=== PATIENT | female | born 1950 | race Caucasian/White ===

== ENCOUNTER 2017-11-25 07:18 | Inpatient (IN) | payer OTHER ==
[2017-11-16 13:38] VITALS: BMI 21.5
--- NOTE | 2017-11-17 11:14 | HP ---
DATE OF ADMISSION: 11/25/2017 DATE OF DICTATION: 11/05/2017 BRIEF HISTORY: This is a 67-year-old female who noted a lump in her midabdomen. She has had this for quite some time but over the past several months, it is causing her more discomfort and she feels it has gotten larger. She states what aggravated it most likely was her severe coughing spell a year ago. In any event, she has had no nausea, no vomiting, no change in bowel habits. She has undergone a workup by GI as well as her primary care for nonspecific abdominal pain. This workup included a CAT scan that demonstrated no suspicious findings in the abdominal region. She had a nonspecific fluid collection in the chest that was evaluated by her primary care physician and was told not an issue. This will not be addressed by me at this time. She has also undergone a colonoscopy that was unremarkable, according to the patient. The results are not available to me. After this extensive workup, it is felt that a hernia might be causing the nonspecific abdominal discomfort and bloating sensation that she has at times. PAST MEDICAL HISTORY: No coronary disease, hypertension, or diabetes. PAST SURGICAL HISTORY: Laminectomy, hysterectomy, section, diagnostic laparoscopy via the umbilicus, and a chromoplasty, and tonsillectomy. Patient has a history of endometriosis, underwent a limited diagnostic laparoscopy, had 5 incisions followed by a total abdominal hysterectomy. This was done via a Pfannenstiel. Allergies to PENICILLIN, FLOXINS, LEVAQUIN. MEDICATIONS: Wellbutrin and Lamictal. SOCIAL HISTORY: Patient does not smoke nor drink. PHYSICAL EXAMINATION: Abdomen: Soft, nontender, nondistended. She has well-healed diagnostic laparoscopy scars. She has a clear hernia from an incisional hernia in the midabdomen. The hernia is chronically incarcerated, mildly tender on examination. The skin overlying the hernia is thinned. The true defects of the hernia are not appreciated, though it is chronically incarcerated in nature. IMPRESSION/PLAN: Chronically incarcerated incisional ventral hernia. At this point, we have discussed the various surgical approaches for repairing this and I think her best approach is via open. At the time of surgery, I suspect she will have a fair amount of frayed tissue and therefore require a larger piece of mesh for a solid repair. If this is the case, she may require a component separation to accomplish this. This will be determined at the time of surgery. The indications, alternatives and complications of the procedure were discussed, questions answered. Will plan to obtain written consent the day of surgery. LINDA VALDEZ M.D. [id number]
[2017-11-25] MEDS ORDERED: BUPIVACAINE LIPOSOME/PF (EXPAREL) 266 MG/20 ML VIAL ONE (09:02)
[2017-11-25] MEDS ORDERED: MIDAZOLAM HCL 2 MG/2 ML SINGLE DOSE VIAL ONE (09:02)
[2017-11-25] MEDS ORDERED: BUPIVACAINE HCL/PF 2.5 MG/ML - 30 ML VIAL IJ ONE (09:02)
[2017-11-25] MEDS ORDERED: clonazePAM 0.5 MG TABLET PO PRN (09:59)
[2017-11-25] MEDS ORDERED: BUPROPION HCL 200 MG PO SCH (10:00)
[2017-11-25] MEDS ORDERED: PATIENT'S OWN MEDICATION (NON-FORMULARY) (Cyclosporine [Restasis] 1 EACH) OU SCH (10:00)
[2017-11-25] MEDS ORDERED: oxyCODONE HCL 5 MG TABLET PO PRN ×2 (10:01→11:49)
[2017-11-25] MEDS ORDERED: ONDANSETRON 4 MG/2 ML VIAL IVPUSH PRN ×2 (10:01→11:49)
[2017-11-25] MEDS ORDERED: morphine SULFATE 4 MG/ML VIAL IVPB PRN (10:01)
[2017-11-25] MEDS ORDERED: PROPOFOL 20 ML ONE ×2 (10:11)
[2017-11-25] MEDS ORDERED: SUCCINYLCHOLINE CHLORIDE 200 MG/10 ML VIAL ONE (10:11)
[2017-11-25] MEDS ORDERED: ROCURONIUM BROMIDE 50 MG/5 ML VIAL ONE (10:11)
[2017-11-25] MEDS ORDERED: D5-1/2NS+20 MEQ KCL - 20 MEQ/1,000 ML INFUS.BAG IV SCH (10:15)
[2017-11-25] MEDS ORDERED: GLYCOPYRROLATE 0.2 MG/1 ML VIAL ONE (11:16)
[2017-11-25] MEDS ORDERED: NEOSTIGMINE METHYLSULFATE 0.5 MG/ML - 10 ML MDV ONE (11:16)
[2017-11-25] MEDS ORDERED: PROMETHAZINE HCL 25 MG/1 ML VIAL IVPUSH PRN (11:49)
--- NOTE | 2017-11-25 15:05 | OP ---
DATE OF OPERATION: 11/25/2017 PREOPERATIVE DIAGNOSIS: Complex chronically incarcerated ventral incisional hernia. POSTOPERATIVE DIAGNOSIS: Complex chronically incarcerated ventral incisional hernia. PROCEDURE: Open bilateral component separation repair of chronically incarcerated ventral incisional hernia with mesh. SURGEON: Anam Zarate MD [facility]LL OPERATOR: Everette Miller DO ANESTHESIA: Celestine Whitley MD (general). ESTIMATED BLOOD LOSS: Minimal. SPECIMEN: None. INDICATION FOR PROCEDURE: This is a 67-year-old female who noted a lump in her midabdomen. It has been there for the past several months but causing her discomfort. Patient has a clear incisional hernia from her previous surgery. It is causing her discomfort. She is here for operative repair. Patient identified and appropriately positioned on operating room table. After placement of general anesthesia, the abdomen was prepped and draped in the usual sterile fashion with ChloraPrep. A vertical incision overlying the hernia was made deep in the subcutaneous tissue. The hernia was dissected free from the subcutaneous tissue with the cautery. This was taken down to the fascial level. The fascia was significantly frayed at this level and therefore the decision was made to do a retrorectus repair with a component separation. The anterior sheath was subsequently divided, the muscles split, the posterior sheath identified and then freed along the right side first and then in the midline it was divided through the linea alba and on the left side it was freed in a similar fashion with blunt dissection. Next, the posterior space was then developed more on the right toward the perforating vessels just medial to the perforating vessels. The fascia was then scored and the transversus was from the obliques and rectus. This was taken approximately 4 inches above and below the actual defect. The midline was developed with blunt dissection, and once that was accomplished, a similar approach on the right side was done. Again, the rectus muscle was followed out laterally bluntly and then the perforating vessels identified. The fascia just medial to the perforating vessels was scored and the vessels and the myofascial separation of the transversus was done from the obliques and the rectus. Again, that was taken about 4 inches above and below the actual defect. A large 15 x 15 piece of ProGrip as well as a 6 x 10 Ovitex Mesh was used for the operative repair. The 2 pieces of mesh were sewn together with interrupted 3-0 Vicryl suture. The Ovitex was placed on the transversus side and the ProGrip with the manager information underneath the rectus. The mesh as placed, fanned out to cover the defect and then the mesh itself was anchored with the AbsorbaTack. All anchors placed under direct counter palpation. Next, the mesh itself was irrigated, the operative field examined and noted to be hemostatic. Counts were correct at this point. The abdomen then underwent a Valsalva to 40 to 50 mmHg x3. This seated the ProGrip as well as ensured that there was no recurrence. Next, the fascia overlying the mesh was reapproximated with interrupted 0 PDS suture. The subcutaneous space was irrigated and the skin closed with klaus. At the conclusion of this case, sponge counts were correct. ATTESTATION: Brief operative note handwritten on the preprinted form. [facility] queried prior to giving narcotics. Rosalina PARKER [id number] Job #: [id number] cc: Douglas Martines MD MTDD
[2017-11-25] MEDS: ACETAMINOPHEN 325 MG TABLET (FP) PO PRN (20:50)
[2017-11-25] MEDS ORDERED: lamoTRIgine 100 MG TABLET (FP) PO SCH (22:00)
[2017-11-26] MEDS: oxyCODONE HCL 5 MG TABLET PO PRN ×2 (00:44→10:34)
[2017-11-26] MEDS: ACETAMINOPHEN 325 MG TABLET (FP) PO PRN (02:24)
[2017-11-26 06:55] VITALS: BP 89/45; PULSE 67; TEMP 98.5
--- NOTE | 2017-11-26 08:40 | DS ---
DATE OF ADMISSION: 11/25/2017 DATE OF DISCHARGE: 11/26/2017 ADMITTING DIAGNOSIS: Complex incarcerated ventral hernia. DISCHARGE DIAGNOSIS: Complex incarcerated ventral hernia. BRIEF HISTORY: This is a 67-year-old female who was admitted to [facility] for surgical management of a complex ventral hernia. She underwent repair of this hernia with mesh utilizing component separation technique. Please reference Dr. Anam Zarate's operative note from November 25 for further details. She is being discharged home today, November 26. She is tolerating diet. She is ambulating and she is voiding. Her discomfort is well controlled with oral narcotics. While she was in the hospital she was also given her usual medications for depression and anxiety as well as for dry eyes. She will go home with her usual home medications and an additional prescription for Percocet which she will take as needed for pain. She is okay to shower. She will not lift anything more than 20 pounds. She will follow with Dr. Zarate in approximately 2 weeks' time for her postoperative check. She will likely require 2 weeks off from work. At the time of her discharge she is afebrile, tolerating diet, ambulating and voiding and wants to go home. DO ANABEL ARMANDO/[id number]
[2017-11-26] MEDS ORDERED: ENOXAPARIN NA (PORCINE) 40 MG/0.4 ML DISP.SYRIN SQ SCH (10:00)
[2017-11-26] MEDS ORDERED: PANTOPRAZOLE SODIUM 40 MG VIAL IVPUSH SCH (10:00)
--- NOTE | 2017-11-26 15:29 | PN ---
Progress Note (short form) - Note Progress Note: Anesthesiology Post-op 67 y.o. woman POD#1 s/p repair of complex ventral hernia with GA and bilateral TAP blocks. She is awake and feels well. She states that she was very comfortable overnight and only now is starting to have some discomfort. The pain meds manage this well. She is otherwise quite content. VSS. 67 y.o. woman with stable post-operative course. Continue current management.
== END 2017-11-26 13:45 | disposition home or self-care (01) | DRG 355 ==
LOC: FASU 07:18 → FM/S 10:01 → UNDOADMIN 12:55 → FM/S 12:55
PROVIDERS: ADMIT Surgery; ATTEND Surgery
PROC: 0WUF0JZ Supplement Abdominal Wall with Synthetic Substitute, Open Approach (ICD-10-PCS; principal; 2017-11-25 10:30)
DX: K43.0 Incisional hernia with obstruction, without gangrene (principal); F41.8 Other specified anxiety disorders
CPT/HCPCS: 94760

== ENCOUNTER 2020-03-18 15:00 | Emergency (ER) | payer OTHER ==
[2020-03-18] MEDS ORDERED: ACETAMINOPHEN 325 MG TABLET (FP) PO ONE (15:28)
[2020-03-18] MEDS ORDERED: LIDOCAINE 5% TOPICAL PATCH TP ONE (15:33)
[2020-03-18] MEDS ORDERED: LIDOCAINE 5% TOPICAL PATCH ONE (15:35)
[2020-03-18] MEDS ORDERED: ACETAMINOPHEN 325 MG TABLET (FP) ONE (15:35)
[2020-03-18 15:37] VITALS: BP 150/94; PULSE 84; BMI 22.8
[2020-03-18 15:48] VITALS: TEMP 99.3
[2020-03-18 15:56] LABS: PLATELET COUNT 330 K/MM3 (134-434)
[2020-03-18 16:01] LABS: HEMOGLOBIN 14.4 GM/dl (10.7-15.3); MCH 30.2 pg (25.7-33.7); MCHC 32.7 g/dl (32.0-36.0); MEAN CELL VOLUME 92.3 fl (80-96); MEAN PLT VOLUME 8.4 fl (7.5-11.1); RBC 4.77 M/mm3 (3.60-5.2); RDW 13.4 % (11.6-15.6); WHITE BLOOD COUNT 7.1 K/mm3 (4.0-10.8)
[2020-03-18 16:08] LABS: EPITHELIAL CELLS MODERATE /hpf
[2020-03-18 16:09] LABS: ALBUMIN 4.2 g/dl (3.4-5.0); BILIRUBIN,TOTAL 0.9 mg/dl (0.2-1); CALCIUM 9.3 mg/dl (8.5-10); CREATININE 0.8 mg/dl (0.55-1.3); POTASSIUM 4.2 mmol/L (3.5-5.1); TOT PROT 6.8 g/dl (6.4-8.2)
[2020-03-18] MEDS ORDERED: LIDOCAINE PATCH REMOVAL MC SCH (22:00)
== END 2020-03-18 16:35 | disposition home or self-care (01) ==
LOC: FER 15:00
DX: M54.5 Low back pain (principal)
CPT/HCPCS: 36415; 80053; 81003; 81015; 85027; 87086; 99283-25

== ENCOUNTER 2021-09-09 21:55 | Emergency (ER) | payer OTHER, MEDICARE ==
[2021-09-09 22:05] VITALS: BP 130/75; PULSE 67; TEMP 98.9; BMI 23.6
[2021-09-09] MEDS ORDERED: cefTRIAXone SODIUM 1 GM VIAL ONE (22:14)
[2021-09-09] MEDS ORDERED: CEFTRIAXONE 1,000 MG in DEXTROSE 5%-WATER - 50 ML IVPB ONE (22:37)
== END 2021-09-09 23:25 | disposition home or self-care (01) ==
LOC: FER 21:55
DX: S61.451A Open bite of right hand, initial encounter (principal); W55.01XA Bitten by cat, initial encounter
CPT/HCPCS: 99284-25

== ENCOUNTER 2021-09-10 21:08 | Emergency (ER) | payer OTHER, MEDICARE ==
[2021-09-10 21:13] VITALS: BP 130/73; PULSE 64; TEMP 98.3; BMI 23.6
== END 2021-09-10 22:46 | disposition home or self-care (01) ==
LOC: FER 21:08
DX: L03.113 Cellulitis of right upper limb (principal); Z48.00 Encounter for change or removal of nonsurgical wound dressing
CPT/HCPCS: 99281-25

== ENCOUNTER 2021-09-28 22:25 | Emergency (ER) | payer OTHER, MEDICARE ==
[2021-09-28 22:48] VITALS: BP 155/74; PULSE 75; TEMP 98.3; BMI 23.6
== END 2021-09-28 23:35 | disposition home or self-care (01) ==
LOC: FER 22:25
DX: S80.12XA Contusion of left lower leg, initial encounter (principal); W10.9XXA Fall (on) (from) unspecified stairs and steps, initial encounter
CPT/HCPCS: 73590-TC-LT-FY; 99283-25

== ENCOUNTER 2022-11-29 06:33 | Emergency (ER) | payer OTHER, MEDICARE ==
[2022-11-29 06:51] VITALS: BP 135/70; PULSE 66; RESP 16; TEMP 98.4; BMI 23.7
== END 2022-11-29 07:43 | disposition home or self-care (01) ==
LOC: FER 06:33
DX: S51.851A Open bite of right forearm, initial encounter (principal); W55.01XA Bitten by cat, initial encounter
CPT/HCPCS: 99283-25

== ENCOUNTER 2022-12-22 08:55 | Day surgery (SDC) | payer OTHER, MEDICARE ==
[2022-12-17 15:47] VITALS: BMI 23.8
[2022-12-22 09:10] VITALS: TEMP 96.8
[2022-12-22 11:02] VITALS: BP 104/63; PULSE 70; RESP 18
== END 2022-12-22 11:25 | disposition home or self-care (01) ==
LOC: FASU-ENDO 08:55
PROVIDERS: ATTEND Internal Medicine Gastroenterology
PROC: 0DJD8ZZ Inspection of Lower Intestinal Tract, Via Natural or Artificial Opening Endoscopic (ICD-10-PCS; principal; 2022-12-22 10:32)
DX: R19.4 Change in bowel habit (principal); K57.30 Diverticulosis of large intestine without perforation or abscess without bleeding; R19.7 Diarrhea, unspecified

== ENCOUNTER 2023-08-05 10:46 | Emergency (ER) | payer OTHER, MEDICARE ==
[2023-08-05 11:03] VITALS: BP 133/88; PULSE 68; RESP 20; TEMP 98.3; BMI 23.8
[2023-08-05] MEDS: SODIUM CHLORIDE 0.9% 500 ML INFUS.BAG IV ONE (11:31)
[2023-08-05 12:21] LABS: HEMATOCRIT 43.9 % (32.4-45.2); HEMOGLOBIN 14.3 G/dL (10.7-15.3); MCHC 32.6 g/dl (32.0-36.0); MEAN CELL VOLUME 92.1 fl (80-96); MEAN PLT VOLUME 8.9 fl (7.5-11.1); PLATELET COUNT 239.4 10^3/uL (134-434); RBC 4.77 10^6/uL (3.60-5.2); RDW 14.8 % (11.6-15.6); WHITE BLOOD COUNT 5.3 10^3/uL (4.0-10.8)
[2023-08-05 12:32] LABS: INR 0.98 (0.83-1.09); PROTHROMBIN TIME (PATIENT) 11.2 SEC (9.7-13.0)
[2023-08-05 12:34] LABS: ACTIVATED PTT 40.3 SECONDS (25.2-36.5)
[2023-08-05 12:45] LABS: ALBUMIN 4.2 g/dl (3.4-5.0); BILIRUBIN,TOTAL 0.6 mg/dl (0.2-1); CALCIUM 9.5 mg/dl (8.5-10.1); CREATININE 0.9 mg/dl (0.6-1.3); TOT PROT 6.4 g/dl (6.4-8.2)
[2023-08-05 13:05] LABS: PLATELET ESTIMATE ADEQUATE
[2023-08-05] MEDS: diazePAM 5 MG TABLET PO ONE (13:48)
[2023-08-05] MEDS ORDERED: diazePAM 5 MG TABLET ONE (13:48)
== END 2023-08-05 15:20 | disposition home or self-care (01) ==
LOC: FER 10:46
DX: R20.0 Anesthesia of skin (principal); R20.2 Paresthesia of skin; F41.9 Anxiety disorder, unspecified
CPT/HCPCS: 36415; 70450-TC; 71045-TC-FY; 80053; 80061; 81003; 82550; 82962; 83036; 84484; 85027; 85610; 85730; 93005; 99285-25